=== PATIENT | male | born 1940 | race Caucasian/White ===

== ENCOUNTER 2024-06-01 15:13 | Emergency (ER) | payer MEDICARE, SELFPAY ==
--- NOTE | 2024-06-01 15:20 | ECG_ITS ---
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
[2024-06-01 15:22] VITALS: BP 112/66; PULSE 158; O2SAT 98
--- NOTE | 2024-06-01 15:23 | XR_ITS ---
The [address] [address] Patient Name: PAUL SÁNCHEZ MRN: [id number] date: 1940 Sex: M Assigned Patient Location: ER Current Patient Location: ED.MAIN Accession/Order Number: [id number] Exam Date: 06/01/2024 15:30 Report Date: 06/01/2024 16:00 At the request of: NIALL JOYCE Procedure: XR chest 1V PROCEDURE: XR chest 1V DATE: 06/01/2024 2:30 PM CDT COMPARISONS: 03/22/2020 CLINICAL INDICATION: 83 years Male Unresponsive FINDINGS: This chest radiograph is limited as it is supine and lordotic. The heart and mediastinum are accentuated by the radiographic technique. The heart is likely prominent and is stable in appearance from previous exam. The lungs are hypoaerated and show small amount of atelectasis. The lungs are otherwise clear. There is no evidence of pleural effusion or pneumothorax. An endotracheal tube is in place. The tip is in good position above the velasquez (4 cm above the velasquez). XR/XR chest 1V IMPRESSION: This is a limited lordotic supine radiograph. There is cardiomegaly. It is otherwise essentially within normal limits and stable from 03/22/2020. Electronically authenticated by: ARABELLA CARDOZA Date: 06/01/2024 16:00
[2024-06-01 15:27] VITALS: TEMP 40.8
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
[2024-06-01 15:34] VITALS: BP 119/67; PULSE 88; O2SAT 95
[2024-06-01] MEDS: 0.9 % SODIUM CHLORIDE 1,000 ML 1000 ML IV (15:35)
[2024-06-01] MEDS: LORAZEPAM 2 MG/ML VIAL IV (15:35)
[2024-06-01] MEDS: ACETAMINOPHEN 650 MG RECTAL SUPPOSITORY PR (15:35)
--- NOTE | 2024-06-01 15:37 | PC.NURSE ---
Quick pads placed upon arrival. Pt remains tachy at 162 on monitor
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
[2024-06-01 15:41] VITALS: PULSE 137
[2024-06-01 15:42] VITALS: PULSE 127
[2024-06-01 15:50] VITALS: BP 116/56
[2024-06-01 15:59] LABS: Basophils Percent Auto 0.3 % (0.2-2.0); Eosinophils Absolute Auto 0.1 10^3/uL (0.0-0.7); Eosinophils Percent Auto 0.6 % (0.9-7.0); Hematocrit 32.8 % (42.0-54.0); Hemoglobin 10.6 g/dL (14.0-18.0); Immature Granulocytes Abs Auto 0.25 10^3/uL (0.00-0.03); Immature Granulocytes Pct Auto 2.1 % (0.0-0.5); Lymphocytes Absolute Auto 2.3 10^3/uL (1.2-3.8); Lymphocytes Percent Auto 19.6 % (20.5-60.0); Mean Corpuscular HGB Conc 32.3 g/dL (29.9-35.2); Mean Corpuscular Hemoglobin 30.8 pg (25.9-34.0); Mean Corpuscular Volume 95.3 fL (80.0-94.0); Mean Platelet Volume 10.7 fL (9.5-13.5); Monocytes Absolute Auto 0.8 10^3/uL (0.3-0.8); Neutrophils Absolute Auto 8.3 10^3/uL (1.4-6.5); Neutrophils Percent Auto 70.4 % (43.0-75.0); Platelet Count 199 10^3/uL (150-450); Red Blood Count 3.44 10^6/uL (4.70-6.10); Red Cell Distribution Width 14.5 % (11.0-15.0); White Blood Count 11.7 10^3/uL (4.0-11.0)
--- NOTE | 2024-06-01 16:02 | PC.NURSE ---
Fluids infusing with transfer to [facility]
[2024-06-01 16:05] LABS: PCO2 VBG 24.4 mmHg (40.0-52.0); pH VBG 7.357 (7.330-7.430)
[2024-06-01 16:19] LABS: INR 1.13; Prothrombin Time 11.8 sec (9.0-11.6)
[2024-06-01 16:23] LABS: D Dimer 9.22 mg/L FEU (<=0.59)
[2024-06-01 16:32] LABS: Lactate/Lactic Acid 5.9 mmol/L (0.4-2.0)
[2024-06-01 16:37] LABS: Alanine Aminotransferase 24 U/L (16-63); Albumin Globulin Ratio 0.9; Alkaline Phosphatase 82 U/L (46-116); Anion Gap 19.4; Aspartate Amino Transferase 37 U/L (15-37); BUN Creatinine Ratio 14.5; Bilirubin Total 0.3 mg/dL (0.2-1.0); Calcium 8.1 mg/dL (8.5-10.1); Carbon Dioxide 15.8 mmol/L (21.0-32.0); Chloride 109 mmol/L (98-107); Estimated GFR (African America 29 (>=60); Estimated GFR (Non-African Ame 24 (>=60); Globulin 3.3 g/dL; Glucose 229 mg/dL (74-106); Sodium 138 mmol/L (136-145); Thyroid Stimulating Hormone 5.869 uIU/mL (0.358-3.740); Total Protein 6.3 g/dL (6.4-8.2)
[2024-06-01 16:41] LABS: Potassium 6.2 mmol/L (3.5-5.1); Troponin I High Sensitivity 749.1 pg/mL (4.0-76.1)
== END 2024-06-01 16:01 | disposition short-term general hospital (02) ==
PROVIDERS: Emergency Provider Emergency Medicine Emergency Medical Services; PCP Family Medicine
DX: R40.4 Transient alteration of awareness (principal); R50.9 Fever, unspecified; R06.02 Shortness of breath; L89.90 Pressure ulcer of unspecified site, unspecified stage
CPT/HCPCS: 31500; 36415; 71045; 80053; 80307; 82800; 83605; 83880; 84443; 84484; 85025; 85378; 85610; 87040; 93005; 96374; 99285; J2060